=== PATIENT | male | born 1975 | race Hispanic/Latino ===

== ENCOUNTER 2017-02-01 17:44 | Emergency (ER) | payer SELFPAY ==
[2017-02-01 18:02] VITALS: TEMP 98.5; O2SAT 100; BMI 24.6
--- NOTE | 2017-02-01 18:08 | ED PDOC ---
Arrival/HPI - General Time Seen by Provider: 02/01/17 17:54 Historian: Patient - History of Present Illness Narrative History of Present Illness (Text): 02/01/17 18:05 41 yo male w/o significant PMHx, no allergy to medication including Penicillin, come in for evaluation of Left upper toothache gradually worsen for past days associated with facial swelling since early today. Pt admits, similar sx in past. Otherwise, pt denies fever, chills, headache, dizziness, vertigo, drooling , trismus, dyspnea, cough, SOB, denies recent dental work. Ambulate to ED for evaluation, appears in some pain. Past Medical History - Provider Review Nursing Documentation Reviewed: Yes - Travel History Have you recently traveled outside [place] w/in the past 3 mons?: No - Past History Past History: No Previous - Tetanus Immunization Tetanus Immunization: Unknown Family/Social History - Physician Review Nursing Documentation Reviewed: Yes Family/Social History: No Known Family HX Allergies/Home Meds Allergies/Adverse Reactions: Allergies No Known Allergies Allergy (Verified 02/01/17 18:03) Review of Systems - Review of Systems Constitutional: Normal Eyes: Normal ENT: Other (toothache). absent: TMJ Pain, Sore Throat, Rhinorrhea, Sinus Congestion Respiratory: Normal. absent: SOB, Wheezing Cardiovascular: Normal. absent: Chest Pain Gastrointestinal: Normal Genitourinary Male: Normal Musculoskeletal: Normal Skin: Normal Neurological: Normal Endocrine: Normal Hemo/Lymphatic: Normal Psychiatric: Normal Physical Exam Vital Signs Reviewed: Yes Vital Signs Temp Pulse Resp BP Pulse Ox 02/01/17 18:01 98.5 F 85 17 154/117 H 100 Temperature: Afebrile Blood Pressure: Hypertensive Pulse: Regular Respiratory Rate: Normal Appearance: Positive for: Well-Appearing, Non-Toxic Pain Distress: Moderate Mental Status: Positive for: Alert and Oriented X 3 - Systems Exam Head: Present: Normocephalic Conjunctiva: Present: Normal Ears: Present: NORMAL TM, Normal Canal Mouth: Present: Normal Tounge, Other (poor dentition. Left upper 1st-2nd molar carious roots with moderate gingival edema or erythema. mild left facial edema, no cellulitis. No flactulance.). No: Drooling, Trismus, Normal Lips Pharnyx: Present: Other (uvula midline, no edema. no drooling, no trismus.). No : ERYTHEMA, EXUDATE, TONSILS ENLARGED Nose (External): Present: Atraumatic Nose (Internal): Present: Normal Inspection Neck: Present: Lymphadenopathy (mild left submandibular, tender), Trachea Midline. No: JVD, Bruit Respiratory/Chest: Present: Clear to Auscultation, Good Air Exchange. No: Respiratory Distress, Accessory Muscle Use, Decreased Breath Sounds, Rales Upper Extremity: Present: Normal ROM. No: Deformity Lower Extremity: Present: Normal ROM. No: Deformity Neurological: Present: GCS=15, Speech Normal, Normal Sensory Function, Norm Deep Tendon Reflexes Skin: Present: Warm, Dry, Normal Color. No: Rashes Psychiatric: Present: Alert, Oriented x 3 Medical Decision Making ED Course and Treatment: 02/01/17 18:09 On re-evauation, pt is afebrile, hemodynamicaly stable. Non-toxic, tolerate po well in ED. PusleOx 100% RA ENT: exam c/w early left upper tooth abscess, no drooling, no trismus neck: Supple, (-) meningeal sign. Lungs: CTA B/L, BS equal B/L. Pt received abx, analgesics. Pt advised and ref. to f/u with Dentist in 1-2 days for re-evaluation. Return to ED if any worsening or new changes. Disposition/Present on Arrival - Present on Arrival Any Indicators Present on Arrival: No - Disposition Have Diagnosis and Disposition been Completed?: Yes Diagnosis: Dental abscess Disposition: HOME/ ROUTINE Disposition Time: 18:11 Patient Plan: Discharge Condition: STABLE Discharge Instructions (ExitCare): Dental Abscess (ED) Additional Instructions: WARM SALTY WATER TOOTH BATHS 2-3 TIMES DAILY TAKE MEDICATION PRESCRIBED FOLLOW UP WITH DENTIST IN 2 DAYS FOR RE-EVALUATION. RETURN TO ED IF ANY WORSENING OR NEW CHANGES. Prescriptions: Penicillin VK [Penicillin VK Tab] 250 mg PO Q6H #28 tab traMADol [Ultram] 50 mg PO TID #7 tab Referrals: [facility] [Provider Group] - Follow up with primary [facility] [Provider Group] - Follow up with primary
[2017-02-01 18:46] VITALS: BP 140/92; PULSE 79; RESP 18
== END 2017-02-01 18:49 | disposition home or self-care (01) ==
LOC: ED 17:44
DX: K04.7 Periapical abscess without sinus (principal)